=== PATIENT | female | born 1950 | race Caucasian/White ===

== ENCOUNTER 2017-02-09 11:46 | Inpatient (IN) | payer OTHER ==
[~2017-02-09] VITALS: Ht 157.5 cm; Wt 49.9 kg
[2017-02-09] MEDS ORDERED: METHYLPREDNISOLONE SOD SUCC 125 MG/2 ML VIAL IV STA (13:06)
[2017-02-09] MEDS ORDERED: ALBUTEROL (0.083%) 2.5MG/3ML NEB HHN STA (13:06)
[2017-02-09] MEDS ORDERED: IPRATROPIUM BROMIDE (0.02%) 0.5MG/2.5ML NEB HHN STA (13:06)
[2017-02-09 13:18] LABS: BASOPHILS % 0.3 % (0.0-2.0); EOSINOPHILS % 0.3 % (0.0-5.0); HEMATOCRIT. 40.4 % (36.0-48.0); HEMOGLOBIN. 13.8 g/dL (12.0-16.0); LYMPHOCYTES % 8.8 % (20.0-50.0); MEAN CORPUSCULAR HEMOGLOBIN 33.7 pg (28.0-32.0); MEAN CORPUSCULAR VOLUME 98.9 fL (81.0-99.0); MEAN PLATELET VOLUME 8.5 fl (7.4-10.4); MONOCYTES % 11.8 % (2.0-8.0); NEUTROPHILS % 78.8 % (40.0-76.0); PLATELET 239 x1000/uL (130-400); RED BLOOD CELL COUNT 4.09 mill/uL (4.2-5.4); RED CELL DISTRIBUTION WIDTH 13.8 % (11.6-14.6)
[2017-02-09 13:22] LABS: D-DIMER 0.77 mg/L FEU (<0.50); INR 1.1; PROTHROMBIN TIME 11.3 sec (9.4-11.6)
[2017-02-09 13:31] LABS: CARBON DIOXIDE 29 mEq/L (21-32); CHLORIDE 99 mEq/L (98-107); TROPONIN I < 0.02 ng/mL (0.00-0.04)
[2017-02-09] MEDS ORDERED: IOHEXOL-350 100 ML BOTTLE ONE (17:47)
[2017-02-09] MEDS ORDERED: NA PHOS,M-B/NA PHOS,DI-BA ENEMA 118ML PR PRN (18:00)
[2017-02-09] MEDS ORDERED: CLONIDINE 0.1MG TABLET PO PRN (18:00)
[2017-02-09] MEDS ORDERED: MORPHINE SULFATE 2 MG/ML CPJ (NOT FOR IM USE) IV PRN (18:00)
[2017-02-09] MEDS ORDERED: GUAIFENESIN 200MG/10ML SUGAR FREE UDC PO PRN (18:00)
[2017-02-09] MEDS ORDERED: ACETAMINOPHEN 325MG TABLET PO PRN (18:00)
[2017-02-09] MEDS ORDERED: DIPHENHYDRAMINE 50MG/ML VIAL IV PRN (18:00)
[2017-02-09] MEDS ORDERED: IPRATROPIUM/ALBUTEROL 0.5-3(2.5)MG/3ML NEB INH PRN (18:00)
[2017-02-09] MEDS ORDERED: NITROGLYCERIN 0.4MG TABLET SL SL PRN (18:00)
[2017-02-09] MEDS ORDERED: TRAMADOL 50MG TABLET PO PRN (18:00)
[2017-02-09] MEDS ORDERED: DOCUSATE SODIUM 100MG CAPSULE PO PRN (18:00)
[2017-02-09] MEDS ORDERED: MAGNESIUM/ALUMINUM HYDROXIDE/SIMETHICONE 30ML UDC PO PRN (18:00)
[2017-02-09] MEDS ORDERED: LORAZEPAM 0.5MG TABLET PO PRN (18:00)
[2017-02-09] MEDS ORDERED: ZOLPIDEM TARTRATE 5MG TABLET PO PRN (18:00)
[2017-02-09] MEDS ORDERED: ONDANSETRON HCL 4MG/2ML VIAL IV PRN (18:00)
[2017-02-09 21:10] VITALS: BP 112/62
[2017-02-09] MEDS ORDERED: LEVOFLOXACIN 500MG PREMIX 100 ML IV SCH (21:18)
[2017-02-09] MEDS ORDERED: ENOXAPARIN 40MG/0.4ML SYR SUBCUT SCH (21:19)
[2017-02-09] MEDS: METHYLPREDNISOLONE SOD SUCC 125 MG/2 ML VIAL IV SCH (22:34)
[2017-02-09] MEDS: FAMOTIDINE 20MG/2ML VIAL IV SCH (22:34)
[2017-02-09] MEDS: GUAIFENESIN/DM 600MG/30MG ER TAB 12HR PO SCH (22:35)
[2017-02-09] MEDS: ENOXAPARIN 40MG/0.4ML SYR SUBCUT SCH (22:36)
[2017-02-09] MEDS: LEVOFLOXACIN 500MG PREMIX 100 ML IV SCH (23:08)
[2017-02-09 23:14] LABS: CREATINE KINASE 46 IU/L (26-192); CREATINE KINASE MB FRACTION 1.6 ng/mL (0.5-3.6); TROPONIN I < 0.02 ng/mL (0.00-0.04)
[2017-02-09] MEDS ORDERED: CITA20TA11 PO (23:48)
[2017-02-10] VITALS: BP 127/67
[2017-02-10] MEDS ORDERED: CLON0.5T4 PO (00:11)
[2017-02-10] MEDS ORDERED: ALD50 PO (00:11)
[2017-02-10] MEDS ORDERED: QUET100T PO (00:11)
[2017-02-10] MEDS ORDERED: ASPI PO (00:20)
[2017-02-10] MEDS ORDERED: [UNRECOGNIZED DRUG - REMARK] PO (00:21)
[2017-02-10] MEDS ORDERED: [UNRECOGNIZED DRUG - OTHER] PO (00:22)
[2017-02-10 04:00] VITALS: BP 145/73
[2017-02-10] MEDS: METHYLPREDNISOLONE SOD SUCC 125 MG/2 ML VIAL IV SCH ×2 (05:37→12:43)
[2017-02-10 08:00] VITALS: BP 128/67
[2017-02-10 08:35] LABS: CREATINE KINASE 155 IU/L (26-192); CREATINE KINASE MB FRACTION 2.9 ng/mL (0.5-3.6); TROPONIN I < 0.02 ng/mL (0.00-0.04)
[2017-02-10] MEDS: CLONAZEPAM 0.5MG TABLET PO SCH ×2 (09:23→18:02)
[2017-02-10] MEDS: ENOXAPARIN 40MG/0.4ML SYR SUBCUT SCH (09:23)
[2017-02-10] MEDS: GUAIFENESIN/DM 600MG/30MG ER TAB 12HR PO SCH ×2 (09:23→20:04)
[2017-02-10] MEDS: ASPIRIN 325MG EC TABLET PO SCH (09:23)
[2017-02-10] MEDS: QUETIAPINE FUMARATE 100MG TABLET PO SCH ×2 (09:23→20:04)
[2017-02-10] MEDS: FAMOTIDINE 20MG/2ML VIAL IV SCH ×2 (09:23→20:04)
[2017-02-10] MEDS: CEFTRIAXONE 1 G PREMIX 50 ML IV SCH (11:04)
[2017-02-10] MEDS ORDERED: ATOR20TA65 PO (11:35)
[2017-02-10 12:00] VITALS: BP 117/55
[2017-02-10] MEDS: SPIRONOLACTONE 25MG TABLET PO SCH (12:43)
[2017-02-10] MEDS ORDERED: IPRATROPIUM/ALBUTEROL 0.5-3(2.5)MG/3ML NEB HHN PRN (14:00)
[2017-02-10 16:00] VITALS: BP 106/56
[2017-02-10] MEDS: PREDNISONE 20MG TABLET PO SCH (18:02)
[2017-02-10] MEDS: NICOTINE 7MG PATCH TD SCH (18:03)
[2017-02-10 20:00] VITALS: BP 104/55
[2017-02-10] MEDS: ATORVASTATIN CALCIUM 20MG TABLET PO SCH (20:04)
[2017-02-10] MEDS: ZOLPIDEM TARTRATE 5MG TABLET PO PRN (20:04)
[2017-02-10] MEDS: BUDESONIDE 0.5MG/2ML NEB HHN SCH ×2 (20:14→20:44)
[2017-02-10] MEDS: IPRATROPIUM/ALBUTEROL 0.5-3(2.5)MG/3ML NEB HHN SCH (20:44)
[2017-02-10] MEDS: LEVOFLOXACIN 500MG PREMIX 100 ML IV SCH (23:16)
[2017-02-11] VITALS: BP 126/79
[2017-02-11] MEDS: IPRATROPIUM/ALBUTEROL 0.5-3(2.5)MG/3ML NEB HHN SCH ×7 (00:15→23:40)
[2017-02-11 04:00] VITALS: BP 128/78
[2017-02-11 08:00] VITALS: BP 132/72
[2017-02-11] MEDS: ASPIRIN 325MG EC TABLET PO SCH (08:39)
[2017-02-11] MEDS: SPIRONOLACTONE 25MG TABLET PO SCH (08:39)
[2017-02-11] MEDS: GUAIFENESIN/DM 600MG/30MG ER TAB 12HR PO SCH ×2 (08:39→21:17)
[2017-02-11] MEDS: FAMOTIDINE 20MG/2ML VIAL IV SCH (08:39)
[2017-02-11] MEDS: PREDNISONE 20MG TABLET PO SCH ×2 (08:40→16:37)
[2017-02-11] MEDS: CLONAZEPAM 0.5MG TABLET PO SCH ×2 (08:40→16:37)
[2017-02-11] MEDS: QUETIAPINE FUMARATE 100MG TABLET PO SCH ×2 (08:40→21:17)
[2017-02-11] MEDS: ENOXAPARIN 40MG/0.4ML SYR SUBCUT SCH (08:41)
[2017-02-11] MEDS: BUDESONIDE 0.5MG/2ML NEB HHN SCH (08:50)
[2017-02-11] MEDS: CEFTRIAXONE 1 G PREMIX 50 ML IV SCH (11:11)
[2017-02-11 12:00] VITALS: BP 110/61
[2017-02-11 15:55] VITALS: BP 100/61
[2017-02-11] MEDS: NICOTINE 7MG PATCH TD SCH (16:36)
[2017-02-11 20:00] VITALS: BP 119/75
[2017-02-11] MEDS: ZOLPIDEM TARTRATE 5MG TABLET PO PRN (21:17)
[2017-02-11] MEDS: ATORVASTATIN CALCIUM 20MG TABLET PO SCH (21:17)
[2017-02-11] MEDS: LEVOFLOXACIN 500MG PREMIX 100 ML IV SCH (22:04)
[2017-02-12 00:05] VITALS: BP 121/80
[2017-02-12] MEDS: IPRATROPIUM/ALBUTEROL 0.5-3(2.5)MG/3ML NEB HHN SCH ×5 (02:30→20:30)
[2017-02-12 04:00] VITALS: BP 141/67
[2017-02-12 08:00] VITALS: BP 142/77
[2017-02-12] MEDS: GUAIFENESIN/DM 600MG/30MG ER TAB 12HR PO SCH ×2 (08:09→21:57)
[2017-02-12] MEDS: PREDNISONE 20MG TABLET PO SCH (08:09)
[2017-02-12] MEDS: SPIRONOLACTONE 25MG TABLET PO SCH (08:09)
[2017-02-12] MEDS: QUETIAPINE FUMARATE 100MG TABLET PO SCH ×2 (08:09→21:57)
[2017-02-12] MEDS: CLONAZEPAM 0.5MG TABLET PO SCH ×2 (08:09→16:45)
[2017-02-12] MEDS: ENOXAPARIN 40MG/0.4ML SYR SUBCUT SCH (08:10)
[2017-02-12] MEDS: ASPIRIN 325MG EC TABLET PO SCH (08:10)
[2017-02-12] MEDS: FAMOTIDINE 20MG/2ML VIAL IV SCH (08:10)
[2017-02-12] MEDS: BUDESONIDE 0.5MG/2ML NEB HHN SCH ×2 (08:42→20:29)
[2017-02-12] MEDS ORDERED: MEROPENEM 1,000 MG in SODIUM CHLORIDE 0.9% 100 ML IV SCH (11:30)
[2017-02-12 12:00] VITALS: BP 134/73
[2017-02-12] MEDS: NICOTINE 7MG PATCH TD SCH (16:40)
[2017-02-12 16:48] VITALS: BP 115/67
[2017-02-12 20:00] VITALS: BP 109/60
[2017-02-12] MEDS: MEROPENEM 1,000 MG in SODIUM CHLORIDE 0.9% 100 ML IV SCH (21:58)
[2017-02-12] MEDS: ATORVASTATIN CALCIUM 20MG TABLET PO SCH (22:12)
[2017-02-13] VITALS: BP 111/61
[2017-02-13] MEDS: IPRATROPIUM/ALBUTEROL 0.5-3(2.5)MG/3ML NEB HHN SCH ×7 (03:06→22:30)
[2017-02-13 04:00] VITALS: BP 130/72
[2017-02-13] MEDS: BUDESONIDE 0.5MG/2ML NEB HHN SCH ×2 (07:40→08:12)
[2017-02-13 08:00] VITALS: BP 134/81
[2017-02-13] MEDS: GUAIFENESIN/DM 600MG/30MG ER TAB 12HR PO SCH ×2 (08:28→20:12)
[2017-02-13] MEDS: ASPIRIN 325MG EC TABLET PO SCH (08:28)
[2017-02-13] MEDS: ENOXAPARIN 40MG/0.4ML SYR SUBCUT SCH (08:29)
[2017-02-13] MEDS: CLONAZEPAM 0.5MG TABLET PO SCH ×2 (08:29→16:27)
[2017-02-13] MEDS: SPIRONOLACTONE 25MG TABLET PO SCH (08:29)
[2017-02-13] MEDS: PREDNISONE 20MG TABLET PO SCH (08:29)
[2017-02-13] MEDS: QUETIAPINE FUMARATE 100MG TABLET PO SCH ×2 (08:29→20:12)
[2017-02-13] MEDS: FAMOTIDINE 20MG/2ML VIAL IV SCH (08:29)
[2017-02-13] MEDS ORDERED: LACTULOSE 20G/30ML UDC PO SCH (09:45)
[2017-02-13] MEDS: MEROPENEM 1,000 MG in SODIUM CHLORIDE 0.9% 100 ML IV SCH ×2 (10:56→22:00)
[2017-02-13 12:00] VITALS: BP 128/79
[2017-02-13 16:26] VITALS: BP 101/64
[2017-02-13] MEDS: NICOTINE 7MG PATCH TD SCH (16:27)
[2017-02-13 20:00] VITALS: BP 111/62
[2017-02-13] MEDS: ATORVASTATIN CALCIUM 20MG TABLET PO SCH (20:12)
[2017-02-14] VITALS: BP 110/64
[2017-02-14 03:56] VITALS: BP 128/82
[2017-02-14] MEDS: IPRATROPIUM/ALBUTEROL 0.5-3(2.5)MG/3ML NEB HHN SCH ×3 (03:58→12:31)
[2017-02-14 07:29] VITALS: BP 136/74
[2017-02-14] MEDS: FAMOTIDINE 20MG/2ML VIAL IV SCH (08:44)
[2017-02-14] MEDS: ASPIRIN 325MG EC TABLET PO SCH (08:45)
[2017-02-14] MEDS: QUETIAPINE FUMARATE 100MG TABLET PO SCH (08:45)
[2017-02-14] MEDS: CLONAZEPAM 0.5MG TABLET PO SCH (08:45)
[2017-02-14] MEDS: PREDNISONE 20MG TABLET PO SCH (08:45)
[2017-02-14] MEDS: ENOXAPARIN 40MG/0.4ML SYR SUBCUT SCH (08:45)
[2017-02-14] MEDS: GUAIFENESIN/DM 600MG/30MG ER TAB 12HR PO SCH (08:45)
[2017-02-14] MEDS: SPIRONOLACTONE 25MG TABLET PO SCH (08:45)
[2017-02-14 10:42] VITALS: BP 120/70
== END 2017-02-14 13:00 | disposition home or self-care (01) | DRG 177 ==
LOC: ER 12:23 → EDBD 17:38 → 8WST 17:38 → ENRESERV 18:07 → SUPCPDRO 19:21
PROVIDERS: ADMIT Internal Medicine; ATTEND Internal Medicine
DX: J15.0 Pneumonia due to Klebsiella pneumoniae (principal); J96.00 Acute respiratory failure, unspecified whether with hypoxia or hypercapnia; J44.0 Chronic obstructive pulmonary disease with (acute) lower respiratory infection; E87.1 Hypo-osmolality and hyponatremia; E44.1 Mild protein-calorie malnutrition; J44.1 Chronic obstructive pulmonary disease with (acute) exacerbation; I11.9 Hypertensive heart disease without heart failure; R59.0 Localized enlarged lymph nodes; F99 Mental disorder, not otherwise specified; Z16.12 Extended spectrum beta lactamase (ESBL) resistance; J20.9 Acute bronchitis, unspecified; E78.5 Hyperlipidemia, unspecified; F17.210 Nicotine dependence, cigarettes, uncomplicated; Z68.20 Body mass index [BMI] 20.0-20.9, adult; Z71.6 Tobacco abuse counseling
CPT/HCPCS: 36415; 71010; 71275; 80053; 80061; 82550; 82553; 83036; 83880; 84484; 85025; 85379; 85610; 87070; 87077; 87186; 87804; 93005; 93306; 93970; 94640; 94644; 94664; 96374; 99285; J0696; J1650; J1956; J2185; J2930; J3490; J7040; J7050; J7512; J7611; J7620; J7626; Q9967